=== PATIENT | female | born 1930 | race Caucasian/White ===

== ENCOUNTER 2017-05-26 20:15 | Emergency (ER) | payer OTHER ==
[2017-05-26 20:28] VITALS: TEMP 97.8; BMI 35.2
[2017-05-27] MEDS ORDERED: NEBIVOLOL 10 MG TABLET (FP) PO ONE (00:29)
[2017-05-27] MEDS ORDERED: CEPHALEXIN MONOHYDRATE 500 MG CAPSULE (UD) PO ONE (00:29)
[2017-05-27] MEDS ORDERED: NEBIVOLOL 5 MG TABLET (FP) PO ONE (00:29)
--- NOTE | 2017-05-27 00:30 | PDOC ---
History of Present Illness - General Chief Complaint: Cold Symptoms Stated Complaint: CHEST PAIN Time Seen by Provider: 05/26/17 23:46 - History of Present Illness Initial Comments: 05/27/17 00:44 The patient is a 87 year old female with a significant PMH of HTN, DM, and HLD who presents to the emergency department with pain to the tip of her nose and diffuse headache since yesterday. The patient reports taking Tylenol with minimal relief of her headache. Denies N/V, denies neck pain/stiffness. States that she often gets headaches when her pressure is high. This headache feels exactly the same. Denies thunderclap. Denies worst headache of life. Pt states that the pain in her nose started a few days ago. She noticed slight redness but no purulent drainage. She has had this in the past and was given abx to treat it. The patient denies chest pain, shortness of breath, and dizziness. Denies fever, chills, vomit, diarrhea and constipation. Denies dysuria, frequency, urgency and hematuria. Allergies: NKA Past surgical history: None reported Social history: No reported alcohol, drug, or cigarette use. PCP: Dr. Louis " Past History - Past Medical History Allergies/Adverse Reactions: Allergies Allergy/AdvReac Type Severity Reaction Status Date / Time No Known Allergies Allergy Verified 05/26/17 20:19 Home Medications: Ambulatory Orders Cephalexin [Keflex] 500 mg PO BID #14 capsule 05/27/17 Diabetes: Yes (niddm) HTN: Yes Hypercholesterolemia: Yes - Suicide/Smoking/Psychosocial Hx Smoking Status: No Smoking History: Never smoked Have you smoked in the past 12 months: No Number of Cigarettes Smoked Daily: 0 Information on smoking cessation initiated: No Hx Alcohol Use: No Drug/Substance Use Hx: No Review of Systems - Review of Systems Comments:: 05/27/17 00:47 "GENERAL/CONSTITUTIONAL: No fever or chills. No weakness. HEAD, EYES, EARS, NOSE AND THROAT: + nose pain, No change in vision. No ear pain or discharge. No sore throat. CARDIOVASCULAR: No chest pain or shortness of breath. RESPIRATORY: No cough, wheezing, or hemoptysis. GASTROINTESTINAL: No nausea, vomiting, diarrhea or constipation. GENITOURINARY: No dysuria, frequency, or change in urination. MUSCULOSKELETAL: No joint or muscle swelling or pain. No neck or back pain. SKIN: No rash NEUROLOGIC: + headache, no vertigo, loss of consciousness, or change in strength /sensation. ENDOCRINE: No increased thirst. No abnormal weight change. HEMATOLOGIC/LYMPHATIC: No anemia, easy bleeding, or history of blood clots. ALLERGIC/IMMUNOLOGIC: No hives or skin allergy. " *Physical Exam - Vital Signs Last Vital Signs Temp Pulse Resp BP Pulse Ox 97.8 F 58 L 18 197/83 96 05/26/17 20:17 05/26/17 20:17 05/26/17 20:17 05/26/17 20:17 05/26/17 20:17 - Physical Exam Comments: 05/27/17 00:44 "GENERAL: Awake, alert, and fully oriented, in no acute distress. Generally weak appearing. HEAD: No signs of trauma EYES: PERRLA, EOMI, sclera anicteric, conjunctiva clear ENT: Auricles normal inspection, hearing grossly normal, nares patent, oropharynx clear without exudates. Moist mucosa NECK: Nontender, no stepoffs, Normal ROM, supple, no lymphadenopathy, JVD, or masses LUNGS: Breath sounds equal, clear to auscultation bilaterally. No wheezes, and no crackles HEART: Regular rate and rhythm, normal S1 and S2, no murmurs, rubs or gallops ABDOMEN: Soft, nontender, normoactive bowel sounds. No guarding, no rebound. No masses EXTREMITIES: Normal range of motion, no edema. No clubbing or cyanosis. No cords, erythema, or tenderness NEUROLOGICAL: Cranial nerves II through XII intact. 5/5 strength and sensation in all extremities, Normal speech, normal gait, normal cerebellar function SKIN: + erythema to tip of nose, no induration, no fluctuance, no drainage ED Treatment Course - LABORATORY CBC & Chemistry Diagram: 05/27/17 01:00 05/27/17 01:00 Medical Decision Making - Medical Decision Making 05/27/17 00:25 87 F with headache and nose pain. Pt's headache is similar in characteristic to pt's previous headaches, which she states she often gets in the context of elevated BP. Pt with no fevers/chills. No signs of meningismus. Pt has very mild cellulitis of her nose, no signs of purulent infection. No s/s systemic infection. Cavernous sinus thrombosis is a concern given facial cellulitis. However, pt states that her headache is exactly the same as previous headaches. Pt with normal mental status, normal neuro exam, no signs of intracranial hypertension. - Labs - CTH - Keflex - IVF, tylenol - Home dose of bystolic for HTN 05/27/17 03:08 Labs wnl Pt with elevated sugar but notes that she last took insulin early in the morning , is due for it soon. CTH unremarkable. Pt reassessed - now feels significantly better. BP normalized with complete resolution of headache. Pt with normal neuro exam, no symptoms at this time. No indication for further neuro imaging or work up. Pt is well appearing, with normal vitals. Clinically stable for DC at this time. I discussed the physical exam findings, ancillary test results and final diagnoses with the patient. I answered all of the patient's questions. The patient was satisfied with the care received and felt comfortable with the discharge plan and treatment plan. The patient agrees to follow up with the primary care physician within 24-72 hours. 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 Continue to take your blood pressure medications and insulin as prescribed. Do not miss any doses. If you experience worsening pain, redness, swelling, headaches, fevers, or any other concerning symptoms, return to the ER immediately. Recoja los antibiticos en shirley farmacia y tmelos segn lo recetado para tratar la infeccin en shirley nariz. Contine tomando rain medicamentos para la presin arterial y la insulina segn lo recetado. No te pierdas ninguna dosis Si experimenta un empeoramiento del dolor, enrojecimiento, hinchazn, freda de soto, fiebre o cualquier otro sntoma preocupante, regrese a la elvis de urgencias inmediatamente. - Post Discharge Activity - Attestations Physician Attestion: 05/27/17 03:19 I, Dr. Sam Singh MD, attest that this document has been prepared under my direction and personally reviewed by me in its entirety. I further attest, that it accurately reflects all work, treatment, procedures and medical decision -making performed by me.
[2017-05-27] MEDS ORDERED: METOCLOPRAMIDE HCL INJECTION 10 MG/2 ML VIAL IVPB ONE (00:33)
[2017-05-27] MEDS ORDERED: ACETAMINOPHEN 1000 MG/100 ML VIAL (NON FORMULARY) IVPB ONE (00:33)
[2017-05-27] MEDS ORDERED: CEPHALEXIN MONOHYDRATE 250 MG CAPSULE (FP) ONE (00:39)
[2017-05-27] MEDS ORDERED: ALBUTEROL SO4 2.5/IPRATROPIUM 0.5 INH SOL 3 ML VIAL.NEB. NEB ONE (00:39)
[2017-05-27] MEDS ORDERED: CEPHALEXIN MONOHYDRATE 250 MG CAPSULE (FP) PO ONE (00:45)
[2017-05-27] MEDS ORDERED: ACETAMINOPHEN INJECTION 100 ML IVPB ONE (00:48)
[2017-05-27] MEDS ORDERED: METOCLOPRAMIDE HCL INJECTION 10 MG/2 ML VIAL ONE (00:48)
[2017-05-27 01:19] LABS: HEMATOCRIT 40.4 % (32.4-45.2); HEMOGLOBIN 13.8 GM/dL (10.7-15.3); LYMPH % 21.8 % (8-40); MCH 29.8 pg (25.7-33.7); MEAN CELL VOLUME 87.6 fl (80-96); MEAN PLT VOLUME 9.9 fl (7.5-11.1); MONO % 6.4 % (3.8-10.2); NEUT % 69.8 % (42.8-82.8); PLATELET COUNT 221 K/MM3 (134-434); RBC 4.62 M/mm3 (3.60-5.2); WHITE BLOOD COUNT 9.9 K/mm3 (4.0-10.0)
[2017-05-27 02:53] LABS: ALBUMIN 3.4 g/dl (3.4-5.0); ALK PHOS 110 U/L (45-117); ANION GAP 11 (8-16); BILIRUBIN,TOTAL 0.9 mg/dL (0.2-1.0); BLOOD UREA NITROGEN 16 mg/dL (7-18); CALCIUM 10.3 mg/dL (8.5-10.1); CHLORIDE 98 mmol/L (98-107); CO2 26 mmol/L (21-32); CREATININE 1.1 mg/dL (0.55-1.02); POTASSIUM 4.4 mmol/L (3.5-5.1); SGOT/AST 16 U/L (15-37); SGPT/ALT 15 U/L (12-78); SODIUM 135 mmol/L (136-145); TOT PROT 8.9 g/dl (6.4-8.2)
[2017-05-27 02:55] LABS: GLUCOSE,RANDOM 420 mg/dL (74-106)
[2017-05-27 03:01] VITALS: BP 137/60; PULSE 54
--- NOTE | 2017-05-27 13:35 | EKG ---
Test Reason : Blood Pressure : / mmHG Vent. 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
== END 2017-05-27 03:42 | disposition home or self-care (01) ==
LOC: JER 20:15
PROC: 3E033GC Introduction of Other Therapeutic Substance into Peripheral Vein, Percutaneous Approach (ICD-10-PCS; principal; 2017-05-26)
PROC: 3E033NZ Introduction of Analgesics, Hypnotics, Sedatives into Peripheral Vein, Percutaneous Approach (ICD-10-PCS; 2017-05-26)
DX: R51 Headache (principal); I10 Essential (primary) hypertension; E11.9 Type 2 diabetes mellitus without complications; Z79.84 Long term (current) use of oral hypoglycemic drugs; E78.00 Pure hypercholesterolemia, unspecified
CPT/HCPCS: 36415; 70450-TC; 80053; 82550; 82553; 82962; 84484; 85025; 93005; 93010; 96374; 96375; 99282-25; J0131

== ENCOUNTER → 2018-11-19 | Day surgery (SDC) | payer MEDICARE, OTHER ==
--- NOTE | 2018-11-20 17:02 | PATH ---
Surgical Pathology Report Patient Name: GUILLE BLANCHARD [facility]. Rec. #: [id number] /Age/Gender: 1930 (Age: 88) / F Account: [id number] Location: [facility] Taken: 11/19/2018 Received: 11/19/2018 Reported: 11/20/2018 Physicians: Jeremias Anderson M.D. Specimen(s) Received A: LEFT BREAST 9-10:00 B: LEFT AXILLARY LYMPH NODE Clinical History Palpable mass, 1.7 cm Mammographic findings: suspicious Ultrasound findings: Highly suspicious/malignant Final Diagnosis A. 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 B. AXILLARY LYMPH NODE, LEFT, ULTRASOUND GUIDED CORE BIOPSY: ONE LYMPH NODE NEGATIVE FOR CARCINOMA ON H&E AND CONFIRMED BY CYTOKERATIN AE1/3 IMMUNOHISTOCHEMICAL STAIN (0/1). Results of Estrogen Receptor (ER) and Progesterone Receptor (NV) studies performed on block "A" at [facility] are as follows: ER (clone [id number] mouse monoclonal antibody by [employer]):<1% nuclear staining with weak intensity (Negative). NV (clone16 mouse monoclonal antibody by [employer]): 0% nuclear staining (Negative). Results of Her2 (IHC) & Ki-67 studies are pending and will be reported separately. Comment: Part A, Immunohistochemical stains performed and interpreted at [facility] show loss of myoepithelial cells (P-63 and SMM-HC) in areas of invasive carcinoma. Carcinoma is positive for E-Cadherin supportive of ductal phenotype. Positive and negative controls (internal if applicable) show appropriate results. Formalin fixation and cold ischemic times are within current ASCO/CAP recommendations for ER, NV and Her2 testing. Electronically Signed Joyce Cesar M.D. Addendum Reported: 11/23/2018 Addendum Diagnosis Results of Her2 (IHC) & Ki-67 studies performed on block "A" at [place], [place] ([id number]) are as follows: Her2 IHC (EP3 from [employer], formerly known as [id number], using Coppola Polymer Refine detection kit): 3+ (Positive). Ki-67: ~45-50% (High proliferative index). Positive and negative controls (internal if applicable) show appropriate results. Joyce Cesar M.D. Gross Description A. Received in formalin labeled "left breast 9-10:00" are 4 white-viramontes, cylindrical portions of fibroadipose tissue ranging from 0.5-1.5 cm in length and averaging 0.2 cm diameter. The specimens are submitted in toto in one cassette. B. Received in formalin labeled "left axillary lymph node" are 2 viramontes-yellow, cylindrical portions of fibroadipose tissue measuring 0.7 cm in length and averaging 0.1 cm diameter. The specimens are submitted in toto in one cassette. Time to formalin fixation: <1 minute Total formalin fixation time: ~7 hours. wendy/11/19/2018
== END | disposition home or self-care (01) ==
LOC: JRADUS-SUR 10:24
PROVIDERS: ATTEND Family Medicine
PROC: 0HB5XZX Excision of Chest Skin, External Approach, Diagnostic (ICD-10-PCS; principal; 2018-11-19)
PROC: 07B63ZX Excision of Left Axillary Lymphatic, Percutaneous Approach, Diagnostic (ICD-10-PCS; 2018-11-19)
PROC: BH47ZZZ Ultrasonography of Upper Extremity (ICD-10-PCS; 2018-11-19)
DX: C50.212 Malignant neoplasm of upper-inner quadrant of left female breast (principal); Z17.1 Estrogen receptor negative status [ER-]; R59.9 Enlarged lymph nodes, unspecified
CPT/HCPCS: 19083; 19084; 77065-TC; 87899; 88305-TC; 88341-TC; 88342-TC; A4648

== ENCOUNTER 2018-12-25 09:56 | Day surgery (SDC) | payer MEDICARE, OTHER ==
[2018-12-25 10:59] VITALS: BMI 34.3
[2018-12-25] MEDS ORDERED: LIDOCAINE HCL 1%, 10 MG/ML (20ML VIAL) ONE (11:56)
[2018-12-25] MEDS ORDERED: ISOSULFAN BLUE 10 MG/ML VIAL SQ ONE (11:56)
[2018-12-25] MEDS ORDERED: MIDAZOLAM HCL 2 MG/2 ML SINGLE DOSE VIAL ONE (12:16)
[2018-12-25] MEDS ORDERED: oxyCODONE HCL 5 MG TABLET PO PRN (12:19)
[2018-12-25] MEDS ORDERED: ONDANSETRON 4 MG/2 ML VIAL IVPUSH PRN (12:19)
[2018-12-25] MEDS ORDERED: ceFAZolin 2 GRAM PREMIX BAG IVPB ONE (12:20)
[2018-12-25] MEDS ORDERED: LACTATED RINGERS SOLUTION 1,000 ML IV SCH (12:30)
[2018-12-25] MEDS ORDERED: ceFAZolin SODIUM 1 GM VIAL ONE (12:37)
[2018-12-25] MEDS ORDERED: ePHEDrine SULFATE 50 MG/1 ML AMPULE ONE (12:44)
[2018-12-25] MEDS ORDERED: LIDOCAINE HCL 1%, 10 MG/ML (20ML VIAL) NR ONE ×2 (13:14)
[2018-12-25] MEDS ORDERED: GLYCOPYRROLATE 0.2 MG/1 ML VIAL ONE (13:18)
[2018-12-25] MEDS ORDERED: KETOROLAC TROMETHAMINE 30 MG/1 ML VIAL ONE (13:23)
--- NOTE | 2018-12-25 15:45 | OP ---
DATE OF OPERATION: 12/25/2018 PREOPERATIVE DIAGNOSIS: Left breast cancer. POSTOPERATIVE DIAGNOSIS: Left breast cancer. PROCEDURE: Left breast ultrasound-guided lumpectomy and sentinel node biopsy. SURGEON: Yvette Paiz MD ANESTHESIA: General. ESTIMATED BLOOD LOSS: Minimal. COMPLICATIONS: None. DISPOSITION: Stable at the end of procedure. INDICATION FOR PROCEDURE: Patient presented with a screening mammography and ultrasound that revealed mass in the inner left breast. A needle biopsy showed invasive carcinoma. My recommendation was a lumpectomy and central node biopsy. The procedure was discussed with all of the questions answered. PROCEDURE IN DETAIL: Patient was brought to [facility] in [place]. She was taken to nuclear medicine, and I injected technetium sulfur colloid as an intradermal injection at the left breast 9 o'clock areolar border. She was then brought up to the operating room, and after induction of general anesthesia and IV antibiotics, 5 mL of Isosulfan blue dye was injected into the left subareolar plexus. The breast was massaged for 5 minutes. The breast and axilla were then prepped and draped in the usual sterile fashion. A 4-cm incision was made in the left axilla, carried down through the clavipectoral fascia to identify a hot and blue sentinel node. That was sent as sentinel node number 1 hot and blue. There was a further deeper sentinel node that was hotter and blue. This was sent as sentinel node number 2 hot and blue. There was no other blue dye radioactivity or pathologic feeling lymph nodes in the left axilla; therefore, once hemostasis was assured with electrocautery, the left breast lumpectomy was performed. An elipse of skin was taken overlying the mass as it felt close superficially in the left breast 9 o'clock location, and superior, medially, and laterally the en bloc lumpectomy was performed, and it was tagged with a long stitch lateral, short stitch superior. Sent to Pathology for permanent section. Hemostasis assured with electrocautery. The parenchyma was approximated with interrupted 2-0 Vicryl, skin approximated with interrupted 3-0 Vicryl, running 4-0 Prolene. A sterile dressing with Steri-Strips and Tegaderm was applied. Once hemostasis was assured in the axilla, the incision was closed in a routine fashion with interrupted 3-0 Vicryl, running 4-0 Prolene. A sterile dressing with Steri-Strips and Tegaderm was applied. She tolerated procedure well, extubated on the operating room table, taken to recovery in good condition. Jeremias [id number]
[2018-12-25 17:20] VITALS: BP 147/61; PULSE 61; TEMP 97.9
--- NOTE | 2018-12-31 10:50 | PATH ---
Surgical Pathology Report Patient Name: GUILLE BLANCHARD [facility]. Rec. #: [id number] /Age/Gender: 1930 (Age: 88) / F Account: [id number] Location: [facility] SURGICAL Taken: 12/25/2018 Received: 12/28/2018 Reported: 12/31/2018 Physicians: Yvette Paiz M.D. Specimen(s) Received A: AXILLARY SENTINEL NODE #1, LEFT, HOT AND BLUE B: AXILLARY SENTINEL NODE #2, LEFT HOT AND BLUE C: LEFT BREAST LUMPECTOMY Clinical History Invasive Final Diagnosis A. AXILLARY SENTINEL NODE #1, LEFT, HOT AND BLUE, EXCISION: ONE LYMPH NODE WITH CHANGES OF PRIOR BIOPSY, NEGATIVE FOR CARCINOMA (0/1). B. AXILLARY SENTINEL NODE #2, LEFT, HOT AND BLUE, EXCISION: ONE LYMPH NODE, NEGATIVE FOR CARCINOMA (0/1). C. BREAST, LEFT, LUMPECTOMY: INVASIVE DUCTAL CARCINOMA, POORLY DIFFERENTIATED WITH PROMINENT ASSOCIATED LYMPHOCYTIC INFILTRATE (TUBULE SCORE: 3/3, NUCLEAR GRADE: 3/3, MITOTIC SCORE: 3/3; TOTAL JAVED SCORE: 9/9). INVASIVE CARCINOMA MEASURES 2.0 CM IN GREATEST MICROSCOPIC DIMENSION. DUCTAL CARCINOMA IN SITU (DCIS), SOLID TYPE, HIGH NUCLEAR GRADE, WITH CENTRAL NECROSIS, PRESENT AT PERIPHERY AND AWAY FROM TUMOR. TUMOR INFILTRATING LYMPHOCYTES (TILs): > 60%. NO LYMPHOVASCULAR INVASION IDENTIFIED. SURGICAL MARGINS ARE UNINVOLVED BY INVASIVE CARCINOMA; INVASIVE CARCINOMA IS 3 MM FROM CLOSEST DEEP MARGIN. DCIS IS <1 MM FROM DEEP MARGIN AND 1 MM FROM MEDIAL MARGIN; REMAINDER OF MARGINS ARE >2.5 MM AWAY. SKIN IS PRESENT AND UNINVOLVED BY CARCINOMA. PRIOR BIOPSY SITE CHANGES ARE PRESENT. PATHOLOGIC STAGE (pTNM): pT1c pN0(sn). SEE INVASIVE CARCINOMA CASE SUMMARY BELOW. Comments Breast Invasive Carcinoma: Surgical Pathology Case Summary (Based on AJCC TNM 8 th edition) Procedure _X_ Excision (less than total mastectomy) Specimen Laterality _X_ Left Tumor Size _X_ Greatest dimension of largest invasive focus >1 mm (millimeters): 20 mm Histologic Type _X_ Invasive carcinoma of no special type (ductal, not otherwise specified) Histologic Grade (Toney Histologic Score) Glandular (Acinar)/Tubular Differentiation _X_ Score 3 (<10% of tumor area forming glandular/tubular structures) Nuclear Pleomorphism _X_ Score 3 Mitotic Rate _X_ Score 3 Overall Grade _X_ Grade 3 (scores of 9) Tumor Focality _X_ Single focus of invasive carcinoma Ductal Carcinoma In Situ (DCIS) _X_ DCIS is present in specimen _X_ Negative for extensive intraductal component (EIC) Margins Invasive Carcinoma Margins _X_ Uninvolved by invasive carcinoma Distance from closest margin (millimeters): 3 mm Closest margin: Deep DCIS Margins _X_ Uninvolved by DCIS Distance from closest margin (millimeters): <1 mm deep margin and 1 mm from medial margin, remainder of margins are >2.5 mm away Closest margin: deep and medial Regional Lymph Nodes _X_ Uninvolved by tumor cells Number of Lymph Nodes Examined: 2 Number of [place] Nodes Examined: 2 Treatment Effect _X_ No known presurgical therapy Lymphovascular Invasion _X_ Not identified Pathologic Stage Classification (pTNM, AJCC 8th Edition) Primary Tumor (Invasive Carcinoma) (pT) _X__ pT1c: Tumor >10 mm but =20 mm in greatest dimension Category (pN) _X_ pN0: No regional lymph node metastasis identified or ITCs only Biomarker Studies Results of ER and SD studies performed on prior biopsy ([id number]) at [facility] are as follows: ER (clone 6F11 mouse monoclonal antibody by [employer]):<1 % nuclear staining with weak intensity (Negative). SD (clone16 mouse monoclonal antibody by [employer]): 0% nuclear staining (Negative). Results of Her2 (IHC) & Ki-67 studies performed on prior biopsy ([id number]) at [place], [place] ([id number]) are as follows: Her2 IHC (EP3 from [employer], formerly known as [id number], using Coppola Polymer Refine detection kit): 3+ (Positive) Ki67: ~45-50% (High proliferative index). Electronically Signed Joyce Cesar M.D. Gross Description A. Received in formalin labeled "left axillary sentinel lymph node #1," is a 2.7 x 1.6 x 0.9 cm viramontes lymph node with attached fat. The specimen is trisected and entirely submitted in 3 cassettes. B. Received in formalin labeled "left axillary sentinel lymph node #2," is a 1.8 x 1.1 x 0.6 cm lymph node with attached fat. The specimen is bisected and entirely submitted in 2 cassettes. C. Received in formalin, labeled "left breast lumpectomy," is a 6.0 x 4.3 x 3.7 cm. viramontes-yellow, irregular, portion of fibroadipose tissue. There is no needle localization wire present. There is a short suture marking the superior aspect and a long suture marking the lateral aspect, per the surgeon. The anterior surface displays a 4.3 x 1.1 cm viramontes, elliptical, unremarkable portion of skin. The specimen is inked as follows: Superior blue; inferior green; lateral red; medial yellow; deep black. The specimen is serially sectioned from medial to lateral. Sectioning reveals a 2.0 x 2.0 x 1.5 cm, viramontes, indurated mass. The mass is 0.3 cm from the deep margin, 0.5 cm from the inferior margin and 0.7 cm from the superior margin. The remaining margins appear clear of the mass. [employer] sections are submitted in 7 cassettes as follows: 1-full face section of mass with deep margin; 2-additional mass with deep margin; 3-mass with superior margin; 4-mass with inferior margin; 5-skin; 6-medial margin; 7-lateral margin. Total formalin fixation time: Approximately 72 hours. 12/28/2018 [facility]12/28/2018
== END 2018-12-25 16:53 | disposition home or self-care (01) ==
LOC: JASU-SURG 09:56
PROVIDERS: ATTEND Surgery
PROC: 0HBU0ZZ Excision of Left Breast, Open Approach (ICD-10-PCS; principal; 2018-12-25 12:00)
DX: C50.912 Malignant neoplasm of unspecified site of left female breast (principal); I10 Essential (primary) hypertension; E11.9 Type 2 diabetes mellitus without complications
CPT/HCPCS: 78195-TC; 82962; 94760; A9541

== ENCOUNTER 2019-01-11 06:32 | Day surgery (SDC) | payer MEDICARE, OTHER ==
[2019-01-11] MEDS ORDERED: LIDOCAINE HCL 1%, 10 MG/ML (20ML VIAL) ONE (07:20)
[2019-01-11 07:35] VITALS: BMI 34.3
[2019-01-11] MEDS ORDERED: SUCCINYLCHOLINE CHLORIDE 200 MG/10 ML SYRINGE ONE (07:37)
[2019-01-11] MEDS ORDERED: PROPOFOL 20 ML ONE (07:37)
[2019-01-11] MEDS ORDERED: ceFAZolin SODIUM 1 GM VIAL ONE (07:41)
[2019-01-11] MEDS ORDERED: DEXAMETHASONE SOD PHOSPHATE 4 MG/1 ML VIAL ONE (07:41)
[2019-01-11] MEDS ORDERED: ceFAZolin SODIUM 1 GM VIAL IVPB ONE (08:30)
[2019-01-11] MEDS ORDERED: LIDOCAINE HCL 1%, 10 MG/ML (20ML VIAL) PNB ONE ×2 (08:33)
[2019-01-11] MEDS ORDERED: LACTATED RINGERS SOLUTION 1,000 ML IV SCH (09:15)
--- NOTE | 2019-01-11 10:20 | OP ---
DATE OF OPERATION: 01/11/2019 PREOPERATIVE DIAGNOSIS: Left breast cancer. POSTOPERATIVE DIAGNOSIS: Left breast cancer. PROCEDURE: Left breast re-excision lumpectomy. SURGEON: Yvette Paiz MD ANESTHESIA: Local, IV sedation. ESTIMATED BLOOD LOSS: Minimal. COMPLICATIONS: None. This was a sterile procedure. INDICATION FOR PROCEDURE: Patient had a left lumpectomy with sentinel node biopsy that noted a 2-cm invasive duct carcinoma with less than 2-mm margin on the DCIS posteriorly and 1-mm margin medially. My recommendation was a re-excision. The procedure was discussed with all of the questions answered. PROCEDURE IN DETAIL: Patient was brought to [facility] in [place], taken into the operating room, and after IV sedation, IV antibiotics, the left breast was prepped and draped in the usual sterile fashion. The medial left breast was anesthetized with 1% lidocaine without epinephrine. The prior incision was sharply re-opened, and the seroma cavity was entered. A new posterior margin was taken with electrocautery, marked with a stitch at the old margin, and sent to Pathology for permanent section. I also took a new medial margin with a stitch at the old margin. This was all sent to Pathology for permanent section. Hemostasis was assured with electrocautery. The parenchyma was approximated with interrupted 2-0 Vicryl, skin approximated with interrupted 3-0 Vicryl and running 4-0 Prolene. A sterile dressing with Tegaderm and 4 x 4 was applied. She tolerated the procedure well, was taken to recovery in good condition. Jeremias [id number]
[2019-01-11 11:24] VITALS: BP 141/60; PULSE 60; TEMP 97.7
--- NOTE | 2019-01-13 18:39 | PATH ---
Surgical Pathology Report Patient Name: GUILLE BLANCHARD [facility]. Rec. #: [id number] /Age/Gender: 1930 (Age: 88) / F Account: [id number] Location: [facility] SURGICAL Taken: 01/11/2019 Received: 01/11/2019 Reported: 01/13/2019 Physicians: Yvette Paiz M.D. Specimen(s) Received A: LEFT BREAST NEW POSTERIOR MARGIN STITCH MARKED OLD MARGIN B: LEFT BREAST NEW MEDIAL MARGIN STITCH OCONNELL OLD MARGIN Clinical History Left breast cancer Final Diagnosis A. LEFT BREAST NEW POSTERIOR MARGIN, EXCISION: ONE FOCUS OF MICROINVASIVE CARCINOMA (LESS THAN 1 MM IN GREATEST DIMENSION). DUCTAL CARCINOMA IN SITU (DCIS), HIGH NUCLEAR GRADE, PRESENT IN 9 OUT OF 9 TOTAL SLIDES. THE NEW MARGIN IS NEGATIVE FOR CARCINOMA. MICROINVASIVE CARCINOMA IS AT 5 MM FROM THE NEW MARGIN. DCIS IS AT LESS THAN 1 MM FROM THE NEW MARGIN. REACTIVE CHANGES AT PRIOR BIOPSY SITE IDENTIFIED. Comment: Immunohistochemical stains (block A9) performed and interpreted at [facility] show the following results: smooth muscle myosin heavy chain and p63 show loss of the myoepithelial cell layer in the microinvasive carcinoma. B. LEFT BREAST NEW MEDIAL MARGIN, EXCISION: ONE FOCUS OF INVASIVE DUCATL CARCINOMA, MEASURING 5 MM IN GREATEST DIMENSION. DUCTAL CARCINOMA IN SITU (DCIS) PRESENT, HIGH NUCLEAR GRADE. THE NEW MARGIN IS NEGATIVE FOR CARCINOMA. INVASIVE CARCINOMA IS AT 3 MM FROM THE NEW MARGIN. DCIS IS AT 2 MM FROM THE NEW MARGIN. REACTIVE CHANGES AT PRIOR BIOPSY SITE IDENTIFIED. Comment: Immunohistochemical stains (block B4) performed and interpreted at [facility] show the following results: smooth muscle myosin heavy chain and p63 show loss of the myoepithelial cell layer in the invasive carcinoma. Electronically Signed Kailey Garcia M.D. Gross Description A. Received in formalin labeled "left breast new posterior margin," is a 4.3 x 3.4 x 1.9 cm portion of fibroadipose tissue with a suture marking the old margin, per the surgeon. The new margin is inked black and the specimen is serially sectioned. The specimen is entirely and sequentially submitted in 9 cassettes. B. Received in formalin labeled "left breast 2 new medial margin," is a 5.3 x 2.5 x 1.4 cm portion of fibroadipose tissue with a suture marking the old margin, per the surgeon. The new margin is inked black and the specimen is serially sectioned. Sectioning reveals a focal 0.6 x 0.4 x 0.4 cm firm nodule at 0.2 cm from the new margin. The specimen is entirely and sequentially submitted in 8 cassettes with the nodule in cassettes 3-4. 01/11/2019 [facility]01/11/2019
== END 2019-01-11 11:20 | disposition home or self-care (01) ==
LOC: JASU-SURG 06:32
PROVIDERS: ATTEND Surgery
PROC: 0HBU0ZZ Excision of Left Breast, Open Approach (ICD-10-PCS; principal; 2019-01-11 08:00)
DX: C50.912 Malignant neoplasm of unspecified site of left female breast (principal); I10 Essential (primary) hypertension; E11.9 Type 2 diabetes mellitus without complications
CPT/HCPCS: 82962; 88307-TC; 88341-TC; 88342-TC; 94760

== ENCOUNTER 2021-02-11 10:28 | Inpatient (IN) | payer MEDICARE, OTHER ==
[2021-02-11 12:25] LABS: EPI CELLS 19 /uL (0-25.1); HYALINE CASTS 3 /uL (0-3.1); PH,URINE 5.5 (5.0-8.0); URINE APPEARANCE CLEAR; URINE BACTERIA 38 /uL (0-1359); URINE BILIRUBIN NEGATIVE (NEGATIVE); URINE COLOR YELLOW; URINE GLUCOSE (UA) 2+ (NEGATIVE); URINE KETONE NEGATIVE (NEGATIVE); URINE LEUK ESTERASE TRACE (NEGATIVE); URINE NITRITE NEGATIVE (NEGATIVE); URINE PROTEIN 1+ (NEGATIVE); URINE RBC 7 /uL (0-23.9); URINE UROBILINOGEN 0.2 mg/dL (0.2-1.0); URINE WBC 8 /uL (0-25.8)
[2021-02-11 12:30] LABS: BASO % 0.6 % (0-2.0); EOS % 2.6 % (0-4.5); HEMATOCRIT 45.4 % (32.4-45.2); HEMOGLOBIN 14.8 GM/dL (10.7-15.3); LYMPH % 18.8 % (8-40); MCH 29.6 pg (25.7-33.7); MCHC 32.6 g/dl (32.0-36.0); MEAN CELL VOLUME 90.8 fl (80-96); MEAN PLT VOLUME 9.1 fl (7.5-11.1); PLATELET COUNT 249 10^3/uL (134-434); RDW 14.6 % (11.6-15.6); WHITE BLOOD COUNT 7.6 K/mm3 (4.0-10.0)
[2021-02-11 12:51] LABS: CALCIUM 9.9 mg/dL (8.5-10.1)
[2021-02-11 12:54] LABS: CREATININE 0.9 mg/dL (0.55-1.3)
[2021-02-11 12:55] LABS: BILIRUBIN,TOTAL 0.8 mg/dL (0.2-1)
[2021-02-11 12:56] LABS: TOT PROT 8.7 g/dl (6.4-8.2)
[2021-02-11] MEDS ORDERED: CEFTRIAXONE 1,000 MG in DEXTROSE 5%-WATER - 50 ML IVPB ONE (14:11)
[2021-02-11] MEDS ORDERED: AZITHROMYCIN IVPB 500 MG in DEXTROSE 5%-WATER - 250 ML IVPB ONE (14:11)
[2021-02-11] MEDS ORDERED: CEFTRIAXONE 1 GM/50 ML BAG ONE (14:39)
[2021-02-11] MEDS ORDERED: AZITHROMYCIN IVPB 500 MG/250 ML BAG IVPB ONE (14:39)
[2021-02-11] MEDS ORDERED: ALBUTEROL SO4 HFA INHALER IH ONE ×2 (16:51→18:27)
[2021-02-11] MEDS ORDERED: DEXAMETHASONE SOD PHOSPHATE 10 MG/1 ML VIAL IVPUSH ONE (16:51)
[2021-02-11] MEDS ORDERED: DEXAMETHASONE SOD PHOSPHATE 4 MG/1 ML VIAL ONE (18:27)
[2021-02-11] MEDS ORDERED: ALBUTEROL SO4 HFA INHALER IH PRN (20:55)
[2021-02-12] MEDS: INSULIN SLIDING SCALE (NOVOLOG) 1 VIAL SQ SCH ×5 (00:57→21:17)
[2021-02-12] MEDS: glipiZIDE-XL 10 MG TAB.ER.24 (FP) PO SCH (06:33)
[2021-02-12] MEDS ORDERED: DEXTROSE 5%-WATER - 50 ML IVPB ONE (09:50)
[2021-02-12] MEDS ORDERED: cefTRIAXone SODIUM 1 GM VIAL ONE (09:50)
[2021-02-12] MEDS: hydrALAZINE HCL 25 MG TABLET (FP) PO SCH ×2 (09:55→21:10)
[2021-02-12] MEDS: PANTOPRAZOLE 20 MG TABLET PO SCH (09:55)
[2021-02-12] MEDS: POLYETHYLENE GLYCOL (HEALTHYLAX) 3350 17 GM PACKET PO SCH (09:55)
[2021-02-12] MEDS: ENOXAPARIN NA (PORCINE) 40 MG/0.4 ML DISP.SYRIN SQ SCH (09:55)
[2021-02-12] MEDS: amLODIPine BESYLATE 10 MG TABLET (FP) PO SCH (09:55)
[2021-02-12] MEDS: HYDROCHLOROTHIAZIDE 25 MG TABLET (FP) PO SCH (09:55)
[2021-02-12] MEDS ORDERED: CEFTRIAXONE 1 GM in DEXTROSE 5%-WATER - 50 ML IVPB SCH (10:00)
[2021-02-12] MEDS ORDERED: PATIENT'S OWN MEDICATION (NON-FORMULARY) (Dexlansoprazole [Dexilant] 60 MG Cap.Dr.Bp) PO SCH (10:00)
[2021-02-12] MEDS ORDERED: AZITHROMYCIN IVPB 500 MG/250 ML BAG IVPB SCH (10:00)
[2021-02-12] MEDS: DEXAMETHASONE 4 MG TABLET (FP) PO SCH (17:08)
[2021-02-12] MEDS: ATORVASTATIN CA 20 MG TABLET (FP) PO SCH (21:10)
[2021-02-13] MEDS: glipiZIDE-XL 10 MG TAB.ER.24 (FP) PO SCH (06:18)
[2021-02-13] MEDS: INSULIN SLIDING SCALE (NOVOLOG) 1 VIAL SQ SCH ×4 (06:19→21:36)
[2021-02-13] MEDS ORDERED: PT OWN MED DRAWER 7, Y5N ONE ×2 (06:22→14:32)
[2021-02-13] MEDS: ENOXAPARIN NA (PORCINE) 40 MG/0.4 ML DISP.SYRIN SQ SCH (10:38)
[2021-02-13] MEDS: DEXAMETHASONE 4 MG TABLET (FP) PO SCH (10:38)
[2021-02-13] MEDS: HYDROCHLOROTHIAZIDE 25 MG TABLET (FP) PO SCH (10:38)
[2021-02-13] MEDS: amLODIPine BESYLATE 10 MG TABLET (FP) PO SCH (10:38)
[2021-02-13] MEDS: hydrALAZINE HCL 25 MG TABLET (FP) PO SCH ×2 (10:38→21:32)
[2021-02-13] MEDS: PANTOPRAZOLE 20 MG TABLET PO SCH (10:38)
[2021-02-13] MEDS: POLYETHYLENE GLYCOL (HEALTHYLAX) 3350 17 GM PACKET PO SCH (10:38)
[2021-02-13] MEDS: AZITHROMYCIN 250 MG TABLET PO SCH (15:31)
[2021-02-13 21:25] VITALS: BMI 29.3
[2021-02-13] MEDS: ATORVASTATIN CA 20 MG TABLET (FP) PO SCH (21:32)
[2021-02-14] MEDS: glipiZIDE-XL 10 MG TAB.ER.24 (FP) PO SCH (06:10)
[2021-02-14] MEDS: INSULIN SLIDING SCALE (NOVOLOG) 1 VIAL SQ SCH (06:13)
[2021-02-14] MEDS ORDERED: AMINO ACIDS/PROTEIN HYDROLYS 30 ML LIQUID.PKT PO SCH ×2 (08:00)
[2021-02-14] MEDS ORDERED: PT OWN MED DRAWER 7, Y5N ONE (09:40)
[2021-02-14] MEDS: ENOXAPARIN NA (PORCINE) 40 MG/0.4 ML DISP.SYRIN SQ SCH (09:44)
[2021-02-14] MEDS: POLYETHYLENE GLYCOL (HEALTHYLAX) 3350 17 GM PACKET PO SCH (09:44)
[2021-02-14] MEDS: HYDROCHLOROTHIAZIDE 25 MG TABLET (FP) PO SCH (09:45)
[2021-02-14] MEDS: hydrALAZINE HCL 25 MG TABLET (FP) PO SCH (09:45)
[2021-02-14] MEDS: PANTOPRAZOLE 20 MG TABLET PO SCH (09:45)
[2021-02-14] MEDS: DEXAMETHASONE 4 MG TABLET (FP) PO SCH (09:45)
[2021-02-14] MEDS: AZITHROMYCIN 250 MG TABLET PO SCH (09:45)
[2021-02-14] MEDS: amLODIPine BESYLATE 10 MG TABLET (FP) PO SCH (09:45)
[2021-02-14 15:49] VITALS: BP 137/63; PULSE 60; TEMP 98.6
== END 2021-02-14 15:23 | disposition home or self-care (01) | DRG 197 ==
LOC: JER 10:28 → JERBED 16:50 → J6S 02-12 04:59
PROVIDERS: ADMIT Internal Medicine; ATTEND Family Medicine
DX: J84.9 Interstitial pulmonary disease, unspecified (principal); J98.11 Atelectasis; I10 Essential (primary) hypertension; E11.9 Type 2 diabetes mellitus without complications; E78.00 Pure hypercholesterolemia, unspecified; J44.9 Chronic obstructive pulmonary disease, unspecified; Z99.81 Dependence on supplemental oxygen; Z85.3 Personal history of malignant neoplasm of breast
CPT/HCPCS: 36415; 71046-TC-FY; 71250-TC; 74176-TC; 76705-TC; 80053; 81003; 82962; 83690; 85025; 87040; 87086; 87804; 93005; 93010; 99285-25; C9803-CS; J1100; U0003; U0005

== ENCOUNTER 2021-06-11 11:16 | Emergency (ER) | payer MEDICARE, OTHER ==
[2021-06-11 11:35] VITALS: TEMP 98.4; BMI 36.8
[2021-06-11] MEDS ORDERED: methylPREDNISolone NA SUCC 125 MG/2 ML VIAL IVPB ONE (11:55)
[2021-06-11] MEDS ORDERED: ALBUTEROL SO4 0.083% IH SOL 2.5 MG/3 ML VIAL.NEB. NEB ONE ×2 (11:55→12:45)
[2021-06-11] MEDS ORDERED: ALBUTEROL SO4 2.5/IPRATROPIUM 0.5 INH SOL 3 ML VIAL.NEB. NEB ONE ×2 (12:18→12:45)
[2021-06-11] MEDS ORDERED: methylPREDNISolone NA SUCC 125 MG/2 ML VIAL ONE (12:45)
[2021-06-11 13:20] LABS: BASO % 0.6 % (0-2.0); EOS % 3.4 % (0-4.5); HEMATOCRIT 41.4 % (32.4-45.2); HEMOGLOBIN 13.6 GM/dL (10.7-15.3); LYMPH % 17.2 % (8-40); MCH 30.2 pg (25.7-33.7); MCHC 32.8 g/dl (32.0-36.0); MEAN CELL VOLUME 91.8 fl (80-96); MEAN PLT VOLUME 8.3 fl (7.5-11.1); MONO % 9.2 % (3.8-10.2); NEUT % 69.6 % (42.8-82.8); PLATELET COUNT 238 10^3/uL (134-434); RBC 4.51 M/mm3 (3.60-5.2); RDW 14.2 % (11.6-15.6); WHITE BLOOD COUNT 8.3 K/mm3 (4.0-10.0)
[2021-06-11 13:49] LABS: ALBUMIN 3.3 g/dl (3.4-5.0); BLOOD UREA NITROGEN 15.9 mg/dL (7-18); CALCIUM 9.6 mg/dL (8.5-10.1); MAGNESIUM 2.1 mg/dL (1.8-2.4)
[2021-06-11 13:54] LABS: BILIRUBIN,TOTAL 0.7 mg/dL (0.2-1); TOT PROT 8.2 g/dl (6.4-8.2)
[2021-06-11 13:58] LABS: INR 1.09 (0.83-1.09); PROTHROMBIN TIME (PATIENT) 12.6 SEC (9.7-13.0)
[2021-06-11 18:14] VITALS: BP 151/79; PULSE 59
== END 2021-06-11 17:10 | disposition home or self-care (01) ==
LOC: JER 11:16
PROC: 3E0F7GC Introduction of Other Therapeutic Substance into Respiratory Tract, Via Natural or Artificial Opening (ICD-10-PCS; principal; 2021-06-11)
PROC: 3E033GC Introduction of Other Therapeutic Substance into Peripheral Vein, Percutaneous Approach (ICD-10-PCS; 2021-06-11)
DX: R06.02 Shortness of breath (principal); K92.0 Hematemesis
CPT/HCPCS: 36415; 71045-TC-FY; 71275-TC; 80053; 83735; 84484; 85025; 85610; 85730; 86850; 86900; 86901; 87804; 93005; 93010; 94640; 96374; 99285-25; C9803-CS; Q9967; U0003; U0005

== ENCOUNTER 2021-11-09 20:28 | Inpatient (IN) | payer MEDICARE, OTHER ==
[2021-11-09 22:08] LABS: EPI CELLS 25 /uL (0-25.1); HYALINE CASTS 1 /uL (0-3.1); PH,URINE 5.5 (5.0-8.0); URINE APPEARANCE CLEAR; URINE BACTERIA 7 /uL (0-1359); URINE BILIRUBIN NEGATIVE (NEGATIVE); URINE COLOR YELLOW; URINE GLUCOSE (UA) NEGATIVE (NEGATIVE); URINE KETONE NEGATIVE (NEGATIVE); URINE LEUK ESTERASE 2+ (NEGATIVE); URINE NITRITE NEGATIVE (NEGATIVE); URINE PROTEIN NEGATIVE (NEGATIVE); URINE WBC 334 /uL (0-25.8)
[2021-11-09 22:37] LABS: URINE RBC 87.8 /uL (0-23.9); YEAST 2+ YEASTS (NEGATIVE)
[2021-11-10 01:12] LABS: BASO % 0.6 % (0-2.0); EOS % 4.8 % (0-4.5); HEMATOCRIT 34.7 % (32.4-45.2); HEMOGLOBIN 11.2 GM/dL (10.7-15.3); LYMPH % 19.5 % (8-40); MCH 28.6 pg (25.7-33.7); MCHC 32.2 g/dl (32.0-36.0); MEAN CELL VOLUME 88.7 fl (80-96); MEAN PLT VOLUME 9.2 fl (7.5-11.1); MONO % 10.9 % (3.8-10.2); NEUT % 64.2 % (42.8-82.8); PLATELET COUNT 254 10^3/uL (134-434); RBC 3.91 M/mm3 (3.60-5.2); RDW 14.4 % (11.6-15.6); WHITE BLOOD COUNT 8.2 K/mm3 (4.0-10.0)
[2021-11-10 01:24] LABS: INR 1.21 (0.83-1.09); PROTHROMBIN TIME (PATIENT) 13.9 SEC (9.7-13.0)
[2021-11-10 01:26] LABS: ACTIVATED PTT 27.9 SECONDS (25.2-36.5)
[2021-11-10 01:32] LABS: CALCIUM 9.2 mg/dL (8.5-10.1)
[2021-11-10 01:33] LABS: ALBUMIN 2.1 g/dl (3.4-5.0)
[2021-11-10 01:37] LABS: BILIRUBIN,TOTAL 0.8 mg/dL (0.2-1); TOT PROT 7.3 g/dl (6.4-8.2)
[2021-11-10 09:03] LABS: ALBUMIN 1.9 g/dl (3.4-5.0); BILIRUBIN,TOTAL 0.8 mg/dL (0.2-1); BLOOD UREA NITROGEN 12.8 mg/dL (7-18); CALCIUM 8.8 mg/dL (8.5-10.1); CREATININE 0.8 mg/dL (0.55-1.3); TOT PROT 6.6 g/dl (6.4-8.2)
[2021-11-10] MEDS ORDERED: PIPERACILLIN/TAZOB 3.375 GM 3.375 GM/50 ML BAG IVPB ONE ×2 (12:43→17:22)
[2021-11-10] MEDS: PIPERACILLIN/TAZOB 3.375 GM 3.375 GM in DEXTROSE 5%-WATER - 50 ML IVPB SCH ×2 (13:06→17:31)
[2021-11-10] MEDS: ASPIRIN COATED 81 MG TABLET.EC PO SCH (13:07)
[2021-11-10] MEDS ORDERED: METOPROLOL TARTRATE 5 MG/5 ML VIAL IVPUSH PRN (17:17)
[2021-11-10] MEDS ORDERED: PANTOPRAZOLE SODIUM 40 MG VIAL ONE (17:22)
[2021-11-10] MEDS: PANTOPRAZOLE SODIUM 40 MG VIAL IVPUSH SCH (17:31)
[2021-11-10] MEDS: ATORVASTATIN CA 80 MG TABLET (FP) PO SCH (22:13)
[2021-11-10] MEDS: AMINO ACIDS 4.25%/D5W 1,000 ML IV SCH (22:13)
[2021-11-11] MEDS: INSULIN SLIDING SCALE (NOVOLOG) 1 VIAL SQ SCH ×5 (00:01→21:22)
[2021-11-11] MEDS: PIPERACILLIN/TAZOB 3.375 GM 3.375 GM in DEXTROSE 5%-WATER - 50 ML IVPB SCH ×3 (02:47→17:11)
[2021-11-11 08:13] LABS: HEMATOCRIT 32.1 % (32.4-45.2); HEMOGLOBIN 10.8 GM/dL (10.7-15.3); MCH 29.7 pg (25.7-33.7); MCHC 33.5 g/dl (32.0-36.0); MEAN CELL VOLUME 88.7 fl (80-96); MEAN PLT VOLUME 8.7 fl (7.5-11.1); PLATELET COUNT 246 10^3/uL (134-434); RBC 3.62 M/mm3 (3.60-5.2); RDW 14.9 % (11.6-15.6); WHITE BLOOD COUNT 8.3 K/mm3 (4.0-10.0)
[2021-11-11 08:32] LABS: ALBUMIN 2.1 g/dl (3.4-5.0); BLOOD UREA NITROGEN 11.1 mg/dL (7-18); CALCIUM 8.9 mg/dL (8.5-10.1); MAGNESIUM 1.5 mg/dL (1.8-2.4)
[2021-11-11 08:36] LABS: CREATININE 0.8 mg/dL (0.55-1.3)
[2021-11-11 08:37] LABS: BILIRUBIN,TOTAL 1.2 mg/dL (0.2-1); TOT PROT 6.9 g/dl (6.4-8.2)
[2021-11-11] MEDS: ASPIRIN COATED 81 MG TABLET.EC PO SCH ×2 (09:07→16:00)
[2021-11-11] MEDS: PANTOPRAZOLE SODIUM 40 MG VIAL IVPUSH SCH (09:21)
[2021-11-11] MEDS ORDERED: MAGNESIUM 1GM/D5W 100ML - 100 ML IVPB IVPB ONE (10:38)
[2021-11-11] MEDS: AMINO ACIDS 4.25%/D5W 1,000 ML IV SCH (14:45)
[2021-11-11 15:02] VITALS: BMI 32.2
[2021-11-11] MEDS: ATORVASTATIN CA 80 MG TABLET (FP) PO SCH (21:17)
[2021-11-12] MEDS: PIPERACILLIN/TAZOB 3.375 GM 3.375 GM in DEXTROSE 5%-WATER - 50 ML IVPB SCH ×3 (02:46→19:01)
[2021-11-12] MEDS: INSULIN SLIDING SCALE (NOVOLOG) 1 VIAL SQ SCH ×5 (06:37→22:27)
[2021-11-12 08:22] LABS: HEMATOCRIT 32.5 % (32.4-45.2); HEMOGLOBIN 10.7 GM/dL (10.7-15.3); MCH 29.3 pg (25.7-33.7); MCHC 33.1 g/dl (32.0-36.0); MEAN CELL VOLUME 88.6 fl (80-96); MEAN PLT VOLUME 8.7 fl (7.5-11.1); PLATELET COUNT 240 10^3/uL (134-434); RBC 3.66 M/mm3 (3.60-5.2); RDW 14.7 % (11.6-15.6)
[2021-11-12 08:38] LABS: CALCIUM 8.9 mg/dL (8.5-10.1)
[2021-11-12 08:39] LABS: MAGNESIUM 1.6 mg/dL (1.8-2.4)
[2021-11-12] MEDS ORDERED: MAGNESIUM 2GM/50ML STERILE WATER IVPB IVPB ONE (08:41)
[2021-11-12 08:42] LABS: CREATININE 0.9 mg/dL (0.55-1.3)
[2021-11-12] MEDS: amLODIPine BESYLATE 5 MG TABLET (FP) PO SCH (09:33)
[2021-11-12] MEDS: LOSARTAN POTASSIUM 50 MG TABLET PO SCH (09:34)
[2021-11-12] MEDS: NEBIVOLOL 10 MG TABLET (FP) PO SCH (09:34)
[2021-11-12] MEDS: ASPIRIN COATED 81 MG TABLET.EC PO SCH (09:34)
[2021-11-12] MEDS: PANTOPRAZOLE SODIUM 40 MG VIAL IVPUSH SCH (09:34)
[2021-11-12] MEDS ORDERED: MAGNESIUM SULF 50% (8.12 MEQ/2 ML-1 GM VIAL) IVPB ONE (10:55)
[2021-11-12] MEDS: AMINO ACIDS 4.25%/D5W 1,000 ML IV SCH (14:12)
[2021-11-12] MEDS: ATORVASTATIN CA 80 MG TABLET (FP) PO SCH (21:20)
[2021-11-13] MEDS: PIPERACILLIN/TAZOB 3.375 GM 3.375 GM in DEXTROSE 5%-WATER - 50 ML IVPB SCH ×2 (01:12→10:25)
[2021-11-13] MEDS: INSULIN (LEVEMIR) 100 UNITS/ML UNITS SQ SCH (06:37)
[2021-11-13] MEDS: INSULIN SLIDING SCALE (NOVOLOG) 1 VIAL SQ SCH ×4 (06:38→21:45)
[2021-11-13] MEDS: metFORMIN HCL 500 MG TABLET (FP) PO SCH ×2 (06:39→17:34)
[2021-11-13] MEDS: sitaGLIPtin PHOSPHATE 50 MG TABLET PO SCH (06:41)
[2021-11-13] MEDS ORDERED: HEPARIN NA (PORCINE) 5,000 UNITS/ML 1ML VIAL SQ SCH (10:00)
[2021-11-13] MEDS: amLODIPine BESYLATE 5 MG TABLET (FP) PO SCH (10:23)
[2021-11-13] MEDS: PANTOPRAZOLE SODIUM 40 MG VIAL IVPUSH SCH (10:24)
[2021-11-13] MEDS: NEBIVOLOL 10 MG TABLET (FP) PO SCH (10:24)
[2021-11-13] MEDS: ASPIRIN COATED 81 MG TABLET.EC PO SCH (10:24)
[2021-11-13] MEDS: LOSARTAN POTASSIUM 50 MG TABLET PO SCH (10:24)
[2021-11-13] MEDS: APIXABAN 5 MG TABLET PO SCH ×2 (11:58→21:07)
[2021-11-13] MEDS: AMOX TR/POT CLAV 500MG/125MG TABLETS (FP) PO SCH (17:34)
[2021-11-13] MEDS: ATORVASTATIN CA 80 MG TABLET (FP) PO SCH (21:07)
[2021-11-14] MEDS: INSULIN (LEVEMIR) 100 UNITS/ML UNITS SQ SCH (06:34)
[2021-11-14] MEDS: metFORMIN HCL 500 MG TABLET (FP) PO SCH ×2 (06:34→17:25)
[2021-11-14] MEDS: sitaGLIPtin PHOSPHATE 50 MG TABLET PO SCH (06:34)
[2021-11-14] MEDS: INSULIN SLIDING SCALE (NOVOLOG) 1 VIAL SQ SCH ×4 (06:35→22:12)
[2021-11-14] MEDS: LOSARTAN POTASSIUM 50 MG TABLET PO SCH (09:47)
[2021-11-14] MEDS: NEBIVOLOL 10 MG TABLET (FP) PO SCH (09:47)
[2021-11-14] MEDS: AMOX TR/POT CLAV 500MG/125MG TABLETS (FP) PO SCH ×2 (09:47→17:25)
[2021-11-14] MEDS: PANTOPRAZOLE 40 MG TABLET PO SCH (09:47)
[2021-11-14] MEDS: amLODIPine BESYLATE 5 MG TABLET (FP) PO SCH (09:48)
[2021-11-14] MEDS: APIXABAN 5 MG TABLET PO SCH ×2 (09:48→22:12)
[2021-11-14 11:06] LABS: BASO % 0.8 % (0-2.0); EOS % 8.4 % (0-4.5); HEMATOCRIT 34.4 % (32.4-45.2); LYMPH % 15.1 % (8-40); MCH 28.5 pg (25.7-33.7); MCHC 32.1 g/dl (32.0-36.0); MEAN CELL VOLUME 88.6 fl (80-96); MEAN PLT VOLUME 8.4 fl (7.5-11.1); MONO % 7.8 % (3.8-10.2); NEUT % 67.9 % (42.8-82.8); PLATELET COUNT 249 10^3/uL (134-434); RBC 3.88 M/mm3 (3.60-5.2); RDW 14.7 % (11.6-15.6); WHITE BLOOD COUNT 10.1 K/mm3 (4.0-10.0)
[2021-11-14 11:29] LABS: BLOOD UREA NITROGEN 10.3 mg/dL (7-18); CALCIUM 9.4 mg/dL (8.5-10.1); MAGNESIUM 1.9 mg/dL (1.8-2.4)
[2021-11-14 11:30] LABS: ALBUMIN 2.1 g/dl (3.4-5.0)
[2021-11-14 11:32] LABS: CREATININE 0.8 mg/dL (0.55-1.3)
[2021-11-14 11:34] LABS: BILIRUBIN,TOTAL 0.9 mg/dL (0.2-1); TOT PROT 7.2 g/dl (6.4-8.2)
[2021-11-14] MEDS: ATORVASTATIN CA 80 MG TABLET (FP) PO SCH (22:12)
[2021-11-15] MEDS: INSULIN (LEVEMIR) 100 UNITS/ML UNITS SQ SCH (06:30)
[2021-11-15] MEDS: metFORMIN HCL 500 MG TABLET (FP) PO SCH ×2 (06:30→16:59)
[2021-11-15] MEDS: sitaGLIPtin PHOSPHATE 50 MG TABLET PO SCH (06:30)
[2021-11-15] MEDS: INSULIN SLIDING SCALE (NOVOLOG) 1 VIAL SQ SCH ×3 (06:32→16:59)
[2021-11-15] MEDS: NEBIVOLOL 10 MG TABLET (FP) PO SCH (09:38)
[2021-11-15] MEDS: APIXABAN 5 MG TABLET PO SCH (09:38)
[2021-11-15] MEDS: AMOX TR/POT CLAV 500MG/125MG TABLETS (FP) PO SCH ×2 (09:38→16:59)
[2021-11-15] MEDS: LOSARTAN POTASSIUM 50 MG TABLET PO SCH (09:38)
[2021-11-15] MEDS: amLODIPine BESYLATE 5 MG TABLET (FP) PO SCH (09:38)
[2021-11-15] MEDS: PANTOPRAZOLE 40 MG TABLET PO SCH (09:38)
[2021-11-15 09:47] VITALS: TEMP 99.1
[2021-11-15 15:53] VITALS: BP 140/61; PULSE 56; RESP 18
== END 2021-11-15 18:43 | DRG 64 ==
LOC: JER 20:28 → JERBED 22:36 → J4W 11-11 02:43 → OBSVTOIN 11-12 09:52
PROVIDERS: ADMIT Internal Medicine; ATTEND Family Medicine
DX: I63.89 Other cerebral infarction (principal); J18.9 Pneumonia, unspecified organism; G81.94 Hemiplegia, unspecified affecting left nondominant side; N39.0 Urinary tract infection, site not specified; E46 Unspecified protein-calorie malnutrition; C79.9 Secondary malignant neoplasm of unspecified site; R29.707 NIHSS score 7; R47.01 Aphasia; C50.919 Malignant neoplasm of unspecified site of unspecified female breast; J44.9 Chronic obstructive pulmonary disease, unspecified; E66.9 Obesity, unspecified; E78.5 Hyperlipidemia, unspecified; I25.10 Atherosclerotic heart disease of native coronary artery without angina pectoris; I48.91 Unspecified atrial fibrillation; E83.42 Hypomagnesemia; E86.0 Dehydration; R62.7 Adult failure to thrive; I12.9 Hypertensive chronic kidney disease with stage 1 through stage 4 chronic kidney disease, or unspecified chronic kidney disease; E11.22 Type 2 diabetes mellitus with diabetic chronic kidney disease; N18.9 Chronic kidney disease, unspecified; Z68.32 Body mass index [BMI] 32.0-32.9, adult
CPT/HCPCS: 0241U-QW; 36415; 70450-TC; 70551-TC; 71045-TC-FY; 80048; 80053; 80061; 81003; 82962; 83036; 83735; 83880; 84443; 85025; 85027; 85610; 85730; 86850; 86900; 86901; 87040; 87086; 87899; 93005; 93010; 97116-GP; 97162-GP; 99285-25; G0378; J1644